=== PATIENT | female | born 1955 | race Caucasian/White ===

== ENCOUNTER 2024-11-22 09:47 | Emergency (ER) | payer BC, OTHER ==
[~2024-11-22] VITALS: Ht 167.6 cm; Wt 61.4 kg
--- NOTE | 2024-11-22 10:05 | ED.PDOC ---
HPI (NEURO) HPI Comments 69 year old female TUAN presents to the ED with chief complaint of dizziness. Patient reports that [place] about to [place] when she suddenly started to experience vertigo with everywhere spinning along with associated nausea and vomiting. EMS relays patient was given 12mg total of Zofran on route, 4mg sublingual and 8mg IV. Patient states she has history of vertigo since being diagnosed with DM and her last episode was about 6-8 weeks ago. Patient notes that she was recent taken off of Metformin 1-2 months ago by her biomedical field service engineer. Patient reports that she has hearing loss and constant hissing in her left ear. Patient denies any diarrhea, abdominal pain, headache, numbness, weakness, SOB, or chest pain. Chief Complaint: Dizziness Time Seen by MD: 10:00 Reviewed Notes: Nurses Notes, Appeals Assistant Notes, Medications, Allergies Information Source: Patient, Emergency Med Personnel Mode of Arrival: EMS Severity: Moderate Dizziness/Weakness Severity: Unable to do activities Headache Severity: None Timing: Hours Duration: Since onset Prehospital treatment: Other (12mg of Zofran, 4mg SL and 8mg IV) Onset: At rest Circumstances: Spontaneous Symptoms: Vertigo Associated Signs and Symptoms: Nausea, Vomiting, Other (Dizziness) Past Medical History PAST MEDICAL HISTORY: DM Past Medical History (Other): Vertigo 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 History: Denies all KENO WRITER / RUNNER Hx Family History Family History: Reviewed,noncontributory to illness Social History Smoker: Non-Smoker Alcohol: Denies ETOH Use Drugs: Denies Drug Use Lives In: Home Constitutional: denies: chills, diaphoresis, fatigue, fever, malaise, sweats, weakness, others EENTM: denies: blurred vision, double vision, ear bleeding, ear discharge, ear drainage, ear pain, ear ringing, eye pain, eye redness, hearing loss, mouth pain, mouth swelling, nasal discharge, nose bleeding, nose congestion, nose pain, photophobia, tearing, throat pain, throat swelling, voice changes, others Respiratory: denies: cough, hemoptysis, orthopnea, SOB at rest, shortness of breath, SOB with excertion, stridor, wheezing, others Cardiovascular: denies: chest pain, dizzy spells, diaphoresis, Dyspnea on exertion, edema, irregular heart beat, left arm pain, lightheadedness, palpitations, PND, syncope, others Gastrointestinal: reports: nausea, vomiting; denies: abdomen distended, abdominal pain, blood streaked bowels, constipated, diarrhea, dysphagia, diffi culty swallowing, hematemesis, melena, poor appetite, poor fluid intake, rectal bleeding, rectal pain, others Genitourinary: denies: abnormal vagina bleeding, burning, dyspareunia, dysuria, flank pain, frequency, hematuria, incontinence, pain, , vagina discharge, urgency, others Neurological: reports: dizziness; denies: fainting, headache, left sided numbness, left sided weakness, numbness, paresthesia, pre-existing deficit, right sided numbness, right sided weakness, seizure, speech problems, tingling, tremors, weakness, others Musculoskeletal: denies: back pain, gout, joint pain, joint swelling, muscle pain, muscle stiffness, neck pain, others Integumetry: denies: bruises, change in color, change in hair/nails, dryness, laceration, lesions, lumps, rash, wounds, others Allergic/Immunocompromised: denies: Difficulty Healing, Frequent Infections, Hives, Itching, others Hematologic/Lymphatic: denies: anemia, blood clots, easy bleeding, easy bruising, swollen glands, others Endocrine: denies: excessive hunger, excessive sweating, excessive thirst, excessive urination, flushing, intolerance to cold, intolerance to heat, unexplained weight gain, unexplained weight loss, others Psychiatric: denies: anxiety, bipolar disorder, depression, hopeless, panic disorder, schizophrenia, sleepless, suicidal, others All Other Systems: Reviewed and Negative Physical Exam General Appearance: Moderate Distress, Normal HEENT: Normal ENT Inspection, PERRL/EOMI Neck: Full Range of Motion, Non-Tender, Normal, Normal Inspection Respiratory: Chest Non-Tender, Lungs Clear, No Accessory Muscle Use, No Respiratory Distress, Normal Breath Sounds Cardiovascular: No Edema, No JVD, No Murmur, No Gallop, Normal Peripheral Pulses, Regular Rate/Rhythm Breast Exam: Deferred Gastrointestinal: No Organomegaly, Non Tender, No Pulsatile Mass, Normal Bowel Sounds, Soft Genitalia: Deferred Pelvic: Deferred Rectal: Deferred Extremities: No calf tenderness, Normal capillary refill, Normal inspection, Normal range of motion, Non-tender, No pedal edema Musculoskeletal : Apperance: Normal Neurologic: Alert, underground bolting 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 Was a procedure done?: No Differential Diagnosis (SZ) Seizure: Psychogenic Seizure, Closed Head Injury, CVA/TIA X-Ray, Labs, Meds, VS Vital Signs Date Time Temp Pulse Resp B/P (MAP) Pulse Ox O2 Delivery O2 Flow Rate FiO2 11/22/24 09:53 58 11/22/24 09:50 Room Air* 0 21 11/22/24 09:50 98.4 69 16 152/84 (106) 98 Lab Test 11/22/24 10:30 Range/Units White Blood Count 6.7 4.4-10.8 10^3/uL Red Blood Count 4.61 4.0-5.20 10^6/uL Hemoglobin 14.3 12.2-16.2 g/dL Hematocrit 42.9 36.0-46.0 % Mean Corpuscular Volume 93.0 80.0-100.0 fL Mean Corpuscular Hemoglobin 30.9 28.0-32.0 pg Mean Corpuscular Hemoglobin Concent 33.2 32.0-36.0 g/dL Red Cell Distribution Width 13.2 11.8-14.3 % Platelet Count 257 140-450 10^3/uL Mean Platelet Volume 8.3 6.9-10.8 fL Neutrophils (%) (Auto) 79.4 37.0-80.0 % Lymphocytes (%) (Auto) 13.1 10.0-50.0 % Monocytes (%) (Auto) 6.0 0.0-12.0 % Eosinophils (%) (Auto) 0.6 0.0-7.0 % Basophils (%) (Auto) 0.9 0.0-2.0 % Neutrophils # (Auto) 5.3 1.6-8.6 10 ^3/uL Lymphocytes # (Auto) 0.9 0.4-5.4 10 ^3/uL Monocytes # (Auto) 0.4 0-1.3 10 ^3/uL Eosinophils # (Auto) 0 0-0.8 10 ^3/uL Basophils # (Auto) 0.1 0-0.2 10 ^3/uL Nucleated Red Blood Cells 0.1 % Sodium Level 137 136-145 mmol/L Potassium Level 4.1 3.5-5.1 mmol/L Chloride Level 100 98-107 mmol/L Carbon Dioxide Level 26 20-31 mmol/L Anion Gap 11 5-15 Blood Urea Nitrogen 16 9-23 mg/dL Creatinine 0.78 0.550-1.02 mg/dL Glomerular Filtration Rate Calc 82 >90 mL/min BUN/Creatinine Ratio 20.5 H 10.0-20.0 Serum Glucose 188 H 74-106 mg/dL Calcium Level 10.4 8.7-10.4 mg/dL Troponin I High Sensitivity < 3 L </=34 ng/L Patient alert. Came in because of dizziness. History of vertigo. Vitals stable. Denies any fall. No new symptom. Moving all extremities. Mentating well. States that she is feeling much better after coming to the ER. Insists on going home. Mentating well. Physical examination pristine. EKG reviewed does not show any acute changes. On re-evaluation physical examination pristine. Blood sugar slightly elevated. Was told to drink plenty of fluids. Able to walk a straight line. Moving all extremities. No need to do a CT scan of the head to rule out any abnormality because of the p hysical examination is pristine. No chest pain. No shortness a breath. No abdominal pain pain. Was given prescription of meclizine. Explained to the patient. Was told to follow up with her primary care physician. Was told to come back if there is any problem. Time of 1ST Reevaluation: 11:00 Reevaluation 1ST: Unchanged Patient Education/Counseling: Diagnosis, Treatment Family Education/Counseling: No Family Present Additional Information I reviewed the following notes from patient's past medical encounters: None The following tests were ordered, and results were reviewed by me: BMP, UA, CBC, Troponin, EKG I reviewed and agreed with the following test results read by other providers: None Additional Information was gathered from interviewing the following independent historians: EMS I discussed treatment and results with medical personnel. Departure 1 Departure Time of Disposition: 10:27 Impression: Primary Impression: Autonomic disorder Disposition: 01 HOME / SELF CARE / HOMELESS Condition: Good e-Prescriptions Meclizine HCl (Meclizine 25) 25 Mg Tab 25 MG PO DAILY for 5 Days, #5 TAB Prov: ARIEL INIGUEZ MD 11/22/24 Discharged With: Self Critical Care Note Critical Care Time?: No Stability Stability form required: No Heart Score Heart Score: Heart Score Response (Comments) Value History N/A 0 EKG N/A 0 Age N/A 0 Risk Factors N/A 0 Troponin N/A 0 Total 0 I personally scribed for ARIEL INIGUEZ MD ([email or web address]) on 11/22/24 at 10:05. Electronically submitted by Oz Thomason ([email or web address]). I personally scribed for ARIEL INIGUEZ MD ([email or web address]) on 11/22/24 at 10:11. Electronically submitted by Oz Thomason ([email or web address]). ARIEL INIGUEZ MD Nov 22, 2024 10:05
[2024-11-22 10:48] LABS: Basophils # (auto) 0.1 10 ^3/uL (0-0.2); Basophils % (auto) 0.9 % (0.0-2.0); Eosinophils # (auto) 0 10 ^3/uL (0-0.8); Eosinophils % (auto) 0.6 % (0.0-7.0); Hematocrit 42.9 % (36.0-46.0); Hemoglobin 14.3 g/dL (12.2-16.2); Lymphocytes # (auto) 0.9 10 ^3/uL (0.4-5.4); Lymphocytes % (auto) 13.1 % (10.0-50.0); Mean Corpuscular Hemoglobin 30.9 pg (28.0-32.0); Mean Corpuscular Hgb Conc. 33.2 g/dL (32.0-36.0); Monocytes # (auto) 0.4 10 ^3/uL (0-1.3); Neutrophils # (auto) 5.3 10 ^3/uL (1.6-8.6); Neutrophils % (auto) 79.4 % (37.0-80.0); Nucleated Red Blood Cells % 0.1 %; Platelet Count (auto) 257 10^3/uL (140-450); Red Blood Cells 4.61 10^6/uL (4.0-5.20); Red Cell Distribution Width 13.2 % (11.8-14.3); White Blood Cell 6.7 10^3/uL (4.4-10.8)
[2024-11-22 10:58] LABS: Chloride 100 mmol/L (98-107); Potassium 4.1 mmol/L (3.5-5.1); Sodium 137 mmol/L (136-145)
[2024-11-22 10:59] LABS: Anion Gap 11 (5-15); Calcium 10.4 mg/dL (8.7-10.4); Carbon Dioxide 26 mmol/L (20-31)
[2024-11-22 11:04] LABS: BUN/Creatinine Ratio 20.5 (10.0-20.0); Blood Urea Nitrogen 16 mg/dL (9-23)
[2024-11-22 11:08] LABS: Glucose 188 mg/dL (74-106)
[2024-11-22] MEDS ORDERED: MECL1TAB42 PO (12:20)
[2024-11-22 12:33] VITALS: BP 137/85; PULSE 78; RESP 16; TEMP 98.7; O2SAT 98
[2024-11-22] MEDS: MECLIZINE HCL 25 MG TAB PO ONE (12:33)
--- NOTE | 2024-11-24 14:43 | ECG ---
[facility] Test Date: 2024-11-22 Test Time: 09:53:09 Pat Name: COY MAIER Department: er Room: Gender: F Director Of Application Development: brandi : 1955 Requested By: ARIEL INIGUEZ Order Number: [id number] Reading MD: Wesly Riley Measurements Intervals [place] Rate: 58 P: 66 [place]: 144 QRS: -8 QRSD: 100 T: 37 QT: 456 QTc: 448 Interpretive Statements Sinus rhythm Probable left atrial enlargement Low voltage, precordial leads RSR' in V1 or V2, right VCD or RVH Electronically Signed On 11-24-2024 22:06:44 PST by Wesly Riley Please click the below link to view image of tracing.
== END 2024-11-22 12:37 | disposition home or self-care (01) ==
LOC: ER 09:47 → EDBD 09:47 → ER 12:37
DX: G90.9 Disorder of the autonomic nervous system, unspecified (principal); E11.9 Type 2 diabetes mellitus without complications; R42 Dizziness and giddiness; R11.2 Nausea with vomiting, unspecified
CPT/HCPCS: 36415; 80048; 82947; 84484; 85025; 93005